=== PATIENT | male | born 1980 | race Caucasian/White ===

== ENCOUNTER 2019-11-17 06:09 | Outpatient (CLI) | payer OTHER ==
--- NOTE | 2019-11-17 08:54 | ULT ---
SOFT TISSUE ULTRASOUND LEFT SUPRACLAVICULAR REGION: INDICATION: Palpable fullness in the left supraclavicular region noted by the patient x 2 weeks. FINDINGS: Targeted ultrasound of this region of palpable concern reveals 2 hypoechoic circumscribed soft tissue masses. The larger measures 2.2 x 2.5 x 5.0 cm. The smaller more lateral mass measures approximate ly 1.5 x 2.0 cm. IMPRESSION: The left supraclavicular region is evaluated due to an area of palpable concern. Two hypoechoic circ umscribed masses are seen consistent with supraclavicular adenopathy. Recommend further evaluation w ith CT neck with IV contrast to assess for other cervical adenopathy. CT chest is also suggested to assess associated mediastinal adenopathy. POS: [facility]
[2019-11-17] MEDS ORDERED: Iopamidol 370 76% 125 ML VIAL FS ONE (10:15)
--- NOTE | 2019-11-17 13:19 | CT ---
CT OF THE CHEST WITH IV CONTRAST INDICATION: Cervical adenopathy COMPARISON: CT of the soft tissues of the neck dated 11/17/2019 FINDINGS: CHEST: Lungs: There is a tiny sub-4 mm pulmonary nodule in the right lower lobe on image 43 of series 3. No additional pulmonary nodule is demonstrated. Pleural space: No effusion. Mediastinum: There is an enlarged right paratracheal lymph node measuring 3.1 x 3 cm. There is an enl arged superior mediastinal lymph node on the left measuring 2.7 cm. An additional enlarged lymph node is seen within superior mediastinum measuring 1.2 cm. Left supraclavicular lymphadenopathy is be tter detailed on the CT the soft tissues of the neck. Upper abdomen:No acute abnormality. Osseous structures: No acute osseous abnormality. No destructive osteolytic or osteoblastic lesion i s identified. Soft tissues:Normal. IMPRESSION: 1. Prominent right paratracheal, upper mediastinal and left supraclavicular lymphadenopathy. Findings are concerning for lymphoma. Recommend consideration for PET/CT. 2. Tiny sub-4 mm pulmonary nodule in the right lower lobe. 3. No evidence of adenopathy within the upper abdomen.
--- NOTE | 2019-11-17 13:50 | CT ---
CT NECK SOFT TISSUES WITH CONTRAST: 11/17/2019 HISTORY: A 39-year-old male with cervical lymphadenopathy. COMPARISON: None. FINDINGS: No consolidation or pulmonary edema at the lung apices. Trachea patent and clear. There is a well circumscribed, homogeneously intermediate-density, right paratracheal, upper mediasti nal mass, measuring 3 x 3 x 4.5 cm. There is an approximately 6 x 2.5 x 2.5 cm similar appearing mass in the left supraclavicular region from the C5-C6 level down to the T3 level, anteriorly displacing and narrowing the left internal jugu lar vein, mildly medially displacing the left common carotid artery, and mildly indenting the anterio r surface of the left anterior scalene muscle. Abutting its lateral edge, there is a similar appearin g, but much smaller mass, measuring approximately 2 x 1.5 x 1.5 cm. No necrosis. No other enlarged cervical lymph nodes. Other than the left level IV lymph nodes, no other pathology is identified in the posterior cervical, parapharyngeal, retropharyngeal, pharyngeal mucosal, perivertebral, parotid, carotid, fence machine operator and submandibular spaces. The larynx is normal. No thyroid pathology identified. IMPRESSION: 1. Cervical lymphadenopathy, consisting of: 2. Two enlarged left level IV supraclavicular lymph nodes. The larger one is 2.5 x 2.5 x 6 cm. 3. A 3 x 3 x 4.5 large right upper mediastinal lymph node. 4. Consider lymphoma. POS: [facility]
== END 2019-11-17 06:10 | disposition home or self-care (01) ==
LOC: MADULT 06:09
PROVIDERS: ATTEND Nurse Practitioner Family
DX: R59.0 Localized enlarged lymph nodes (principal); R22.1 Localized swelling, mass and lump, neck
CPT/HCPCS: 70491; 71260; 76999; Q9967

== ENCOUNTER 2019-12-04 11:41 | Outpatient (CLI) | payer OTHER ==
[2019-12-04 13:07] LABS: Anion Gap 14 mmol/L (10-20); BUN (Urea Nitrogen) 13 mg/dL (8.9-20.6); Calc. Creatinine Clearance 0 mL/min (70-130); Calcium 9.7 mg/dL (7.8-10.44); Carbon Dioxide 26 mmol/L (22-29); Chloride 103 mmol/L (98-107); Estimated GFR-MDRD 88; Glucose 95 mg/dL (70-105); Potassium 4.2 mmol/L (3.5-5.1); Sodium 139 mmol/L (136-145)
[2019-12-04 13:08] LABS: #Basophils 0.1 thou/uL (0.0-0.2); #Eosinphils 0.3 thou/uL (0.0-0.7); #Lymphocytes 1.4 thou/uL (1.20-3.40); #Monocytes 0.5 thou/uL (0.11-0.59); %Basophils 1.5 % (0.0-1.0); %Eosinophils 5.4 % (0.0-10.0); %Lymphocytes 26.4 % (21.0-51.0); %Monocytes 8.8 % (0.0-10.0); %Neutrophils 57.9 % (42.0-75.0); Hemoglobin 14.7 g/dL (14.0-18.0); Mean Corpuscular HGB CONC 31.3 g/dL (32.0-36.0); Mean Corpuscular Hemoglobin 27.6 pg (27.0-31.0); Mean Corpuscular Volume 88.1 fL (78.0-98.0); Mean Platelet Volume 7.6 fL (7.4-10.4); Platelet Count 349 thou/uL (130-400); RBC Distribution Width 11.9 % (11.5-14.5); Red Blood Cell (RBC) Count 5.33 mill/uL (4.70-6.10); White Blood Cell (WBC) Count 5.2 thou/uL (4.8-10.8)
== END 2019-12-04 11:42 | disposition home or self-care (01) ==
LOC: MADLAB 11:41
PROVIDERS: ATTEND Surgery
DX: Z01.812 Encounter for preprocedural laboratory examination (principal); C85.90 Non-Hodgkin lymphoma, unspecified, unspecified site
CPT/HCPCS: 80048; 85025

== ENCOUNTER 2020-08-04 10:35 | Outpatient (CLI) | payer OTHER ==
[2020-08-04 11:51] LABS: #Basophils 0.1 thou/uL (0.0-0.2); #Eosinphils 0.3 thou/uL (0.0-0.7); #Monocytes 0.4 thou/uL (0.11-0.59); #Neutrophils 2.9 thou/uL (1.40-6.50); %Eosinophils 5.6 % (0.0-10.0); %Lymphocytes 21.6 % (21.0-51.0); %Monocytes 9.3 % (0.0-10.0); %Neutrophils 61.6 % (42.0-75.0); Hemoglobin 14.4 g/dL (14.0-18.0); Mean Corpuscular HGB CONC 34.4 g/dL (32.0-36.0); Mean Corpuscular Hemoglobin 29.5 pg (27.0-31.0); Mean Corpuscular Volume 85.8 fL (78.0-98.0); Mean Platelet Volume 7.7 fL (7.4-10.4); Platelet Count 307 thou/uL (130-400); RBC Distribution Width 11.9 % (11.5-14.5); Red Blood Cell (RBC) Count 4.86 mill/uL (4.70-6.10); White Blood Cell (WBC) Count 4.7 thou/uL (4.8-10.8)
[2020-08-04 12:05] LABS: ALT (SGPT) 21 U/L (8-55); AST (SGOT) 16 U/L (5-34); Albumin 4.4 g/dL (3.5-5.0); Alkaline Phosphatase 48 U/L (40-110); Anion Gap 20 mmol/L (10-20); BUN (Urea Nitrogen) 15 mg/dL (8.9-20.6); Bilirubin, Total 0.6 mg/dL (0.2-1.2); Calc. Creatinine Clearance 0 mL/min (70-130); Calcium 9.1 mg/dL (7.8-10.44); Carbon Dioxide 23 mmol/L (22-29); Chloride 101 mmol/L (98-107); Estimated GFR-MDRD 79; Globulin 2.9 g/dL (2.4-3.5); Glucose 103 mg/dL (70-105); Potassium 3.9 mmol/L (3.5-5.1); Protein, Total 7.3 g/dL (6.0-8.3); Sodium 140 mmol/L (136-145); Uric Acid 4.5 mg/dL (3.5-7.2)
[2020-08-06 15:34] LABS: Follow-up Chemistry Comp? YES; Follow-up Hematology Comp? YES; Follow-up Result - Chemistry REPORT FAXED; Follow-up Result - Hematology REPORT FAXED
== END 2020-08-04 10:36 | disposition home or self-care (01) ==
LOC: MADLAB 10:35
PROVIDERS: ATTEND Internal Medicine Hematology & Oncology
DX: C81.91 Hodgkin lymphoma, unspecified, lymph nodes of head, face, and neck (principal); R59.1 Generalized enlarged lymph nodes
CPT/HCPCS: 36415; 80053; 83615; 84550; 85025; 85652